=== PATIENT | female | born 1955 | race Caucasian/White ===

== ENCOUNTER 2020-02-02 09:07 | Observation (INO) | payer MEDICARE ==
[~2020-02-02] VITALS: Ht 157.5 cm; Wt 93.2 kg
[~2020-02-02 09:07] MED LIST: ACET325 PO; DOCU100 PO; ENOX40I SC; HYDACE5325; HYDMOR2 PO; OXYC10ER PO
[2020-02-02 09:27] LABS: BASOPHILS ABSOLUTE AUTO 0.09 K/mm3 (0.00-0.23); BASOPHILS PERCENT AUTO 1 % (0-2); EOSINOPHILS ABSOLUTE AUTO 0.58 K/mm3 (0.00-0.68); EOSINOPHILS PERCENT AUTO 5 % (0-6); Hematocrit 47.7 % (33.0-51.0); Hemoglobin 15.9 g/dL (11.5-16.0); IMMATURE GRAN ABSOLUTE AUTO 0.04 K/mm3 (0.00-0.10); IMMATURE GRAN PERCENT AUTO 0 % (0-1); LYMPHOCYTES ABSOLUTE AUTO 6.56 K/mm3 (0.84-5.20); LYMPHOCYTES PERCENT AUTO 52 % (21-46); MONOCYTES PERCENT AUTO 7 % (4-13); Mean Corpuscular HGB 33.4 pg (26.0-34.0); Mean Corpuscular HGB Conc 33.3 g/dL (31.5-36.5); Mean Corpuscular Volume 100 fL (80-100); Mean Platelet Volume 9.4 fL (9.1-12.4); NEUTROPHILS ABSOLUTE AUTO 4.36 K/mm3 (1.96-9.15); NEUTROPHILS PERCENT AUTO 35 % (41-73); Platelet Count 241 K/mm3 (150-400); RDW Coefficient Variation 13.2 % (11.7-14.2); RDW Standard Deviation 49.1 fL (35.1-46.3); Red Blood Cell Count 4.76 M/mm3 (3.80-5.20); White Blood Cell Count 12.53 K/mm3 (4.00-11.30)
[2020-02-02] MEDS ORDERED: ASPI325 PO (09:36)
[2020-02-02 09:48] LABS: Alanine Aminotransfer (ALT/SGP 17 U/L (12-78); Albumin, Blood 3.8 g/dL (3.4-5.0); Alk Phos 82 U/L (50-136); Anion Gap 9 mmol/L (6-16); Aspartate Aminotrans (AST/SGOT 15 U/L (12-37); Bilirubin, Total 0.5 mg/dL (0.1-1.0); Blood Urea Nitrogen 12 mg/dL (8-24); Bun/Creatinine Ratio 15.2 (12.0-20.0); CO2, Blood 19 mmol/L (21-32); Calcium, Blood 8.9 mg/dL (8.5-10.1); Chloride, Blood 113 mmol/L (98-108); Creatinine, Blood 0.79 mg/dL (0.40-1.00); Globulin, Blood 3.7 g/dL (2.2-4.0); Glomerular Filtration Rate >60 (60-); Glucose, Blood 119 mg/dL (70-99); Potassium, Blood 4.3 mmol/L (3.5-5.5); Sodium, Blood 141 mmol/L (136-145); Total Protein, Blood 7.5 g/dL (6.4-8.2)
--- NOTE | 2020-02-02 18:33 | NUR ---
1810 PT ADMITTED TO MEDICAL FLOOR VIA [facility]. PT SLIDE TRANSFERED TO BED WITH FOUR STAFF WITHOUT ISSUE. PT ASSISTED TO BSC WITH TWO ASSIST AND GB, PT REPORTS DIZZINESS WITH ANY CHANGE IN POSITION. PT BECAME NAUSEAUS WITH DRY HEAVES AFTER ASSISTED BACK TO BED, CHRIS CARE COMPLETED, GOWN CHANGED. PT DENIED THE NEED FOR NAUSEA MEDICATION ONCE LAYING ON SIDE. PT RESTING COMFORTABLY IN BED AT THIS TIME WITH EYES CLOSED.
[2020-02-02 22:34] LABS: Source, Urine Clean Catch
[2020-02-02 22:39] LABS: Bilirubin, Urine Neg (Neg); Blood, Urine 3+ (Neg); Glucose Qualitative, Urine Neg (Neg); Ketones, Urine Neg (Neg); Leukocyte Esterase, Urine Neg (Neg); Nitrite, Urine Neg (Neg); Protein, Urine Neg (Neg); Specific Gravity, Urine 1.015 (1.003-1.022); Urobilinogen, Urine NORM (Normal); pH, Urine 6.5 (5.0-8.0)
[2020-02-02 22:42] LABS: Appearance, Urine Clear (Clear); Color, Urine Yellow (P-Yellow)
[2020-02-02 22:50] LABS: Bacteria Rare /hpf; Red Blood Cells, Urine 0-2 /hpf (0-2); Squamous Epithelial Cells Few /hpf (Few); White Blood Cells, Urine Rare /hpf (0-5)
--- NOTE | 2020-02-02 23:33 | NUR ---
64 year old Female with vertigo, falls, N & V admitted OBS status & is on tel monitor. PT is sinus pola 53 but dips down to 43 temporarly. She had low TSH . Updated CLINICAL REVIEWER Sinpu & free t3 t4 ordered for AM. Continues with IV fluid 200 ml hr. Some verigo when up to BSC. Bed alalrm fall precautions. Tolerated snacl clear liquids after antiemetic given. On [facility] for superficial DVT & PT refused Saurabh fernandes.
[2020-02-03 04:31] LABS: BASOPHILS ABSOLUTE AUTO 0.07 K/mm3 (0.00-0.23); BASOPHILS PERCENT AUTO 1 % (0-2); EOSINOPHILS ABSOLUTE AUTO 0.25 K/mm3 (0.00-0.68); EOSINOPHILS PERCENT AUTO 4 % (0-6); Hematocrit 41.7 % (33.0-51.0); IMMATURE GRAN ABSOLUTE AUTO 0.01 K/mm3 (0.00-0.10); IMMATURE GRAN PERCENT AUTO 0 % (0-1); LYMPHOCYTES ABSOLUTE AUTO 2.46 K/mm3 (0.84-5.20); LYMPHOCYTES PERCENT AUTO 37 % (21-46); MONOCYTES ABSOLUTE AUTO 0.58 K/mm3 (0.16-1.47); MONOCYTES PERCENT AUTO 9 % (4-13); Mean Corpuscular HGB 32.3 pg (26.0-34.0); Mean Corpuscular HGB Conc 31.2 g/dL (31.5-36.5); Mean Corpuscular Volume 104 fL (80-100); Mean Platelet Volume 9.5 fL (9.1-12.4); NEUTROPHILS ABSOLUTE AUTO 3.31 K/mm3 (1.96-9.15); NEUTROPHILS PERCENT AUTO 50 % (41-73); Platelet Count 171 K/mm3 (150-400); RDW Coefficient Variation 13.4 % (11.7-14.2); RDW Standard Deviation 51.7 fL (35.1-46.3); Red Blood Cell Count 4.03 M/mm3 (3.80-5.20); White Blood Cell Count 6.68 K/mm3 (4.00-11.30)
[2020-02-03 04:53] LABS: Alanine Aminotransfer (ALT/SGP 15 U/L (12-78); Albumin, Blood 2.9 g/dL (3.4-5.0); Albumin/Globulin Ratio 1.1 (0.8-1.8); Alk Phos 63 U/L (50-136); Anion Gap 4 mmol/L (6-16); Aspartate Aminotrans (AST/SGOT 7 U/L (12-37); Bilirubin, Total 0.6 mg/dL (0.1-1.0); Blood Urea Nitrogen 7 mg/dL (8-24); Bun/Creatinine Ratio 8.7 (12.0-20.0); CO2, Blood 28 mmol/L (21-32); Calcium, Blood 7.7 mg/dL (8.5-10.1); Chloride, Blood 116 mmol/L (98-108); Creatinine, Blood 0.81 mg/dL (0.40-1.00); Globulin, Blood 2.7 g/dL (2.2-4.0); Glomerular Filtration Rate >60 (60-); Glucose, Blood 83 mg/dL (70-99); Potassium, Blood 4.1 mmol/L (3.5-5.5); Sodium, Blood 148 mmol/L (136-145); Total Protein, Blood 5.6 g/dL (6.4-8.2)
[2020-02-03 05:05] LABS: Free Thyroxine 0.95 ng/dL (0.70-1.60)
[2020-02-03 05:06] LABS: Triiodothyronine, Free 2.1 pg/mL (2.18-3.98)
--- NOTE | 2020-02-03 05:39 | NUR ---
PT HAS COMPLAINED OF ABDOMINAL CRAMPING. NURSE NOTIFIED.
--- NOTE | 2020-02-03 10:57 | NUR ---
THIS NURSE RECEIVED REPORT FROM ELIZABETH KNIGHT. THIS NURSE TO ASSUME CARE AT THIS TIME
--- NOTE | 2020-02-03 11:52 | NUR ---
SPOKE TO DR SANTY LORENZO TELE CALLED JUST DIPPED TO 39-40. ORDERS FOR COFFEE AND POSS MEDS TO FOLLOW. NOTIFIED DR ABOUT PT STATED CLOSED EYE AWAKE DREAMING. PT AWAKE, A/O X3, DENIES PAIN. TALKING ON PHONE WITH DAUGHTER. STATES COMFORTABLE, BUT VERTIGO REMAINS. NO N/V AT THIS TIME. H/R REG, BUT SLOW. PER TELE. S BJ AT 42. LUNGS CLEAR, RESP EASY, UNLABORED. ON R.A. BT HYPO, HOWEVER PT STATES 2 BM THIS AM. VOIDS 1 ASST TO BSC. CONTINUES WITH VERTIGO, BUT NO N/V AT THIS TIME. BED IN LOW POSITION, CALL LITE IN REACH, CALLS APROP
--- NOTE | 2020-02-03 17:54 | NUR ---
SHIFT SUMMARY PT AXO, PLEASANT AND COOPERATIVE WITH CARE. PT PULSE 39-42 THIS SHIFT PER WING COMMANDER. WHEN NURSE IN TO ASSESS, PT DENIED DIZZINESS, SOB, ETC. PT ABLE TO CONVERSE WITH NURSE, SMILING AND LAUGHING AT TIMES. DR MADERA NOTIFIED AT ROUNDING WHO ORDERED THAT PATIENT DRINK COFFEE. PT DRINKING COFFEE THROUGHOUT THE DAY WITH NO INCREASE IN HR. PT CONTINUED TO BE BRADYCARDIC, DR MADERA NOTIFED AT 1344, PT SUSTAINING 41-42. NO NEW ORDERS AT THIS TIME. DR MADERA STATED THAT ECHO COULD BE COMPLETED THE NEXT MORNING R/T MARKET RESEARCH COORDINATOR ALREADY LEFT FOR TODAY. PT AMBULATED TO SHOWER. REPORTED SOME DIZZINESS AT THAT TIME BUT MILD. AT 1646 NURSE IN TO INSERT NEW IV, PT STATED THAT AT HOME DURING THE NIGHT SHE HAS HAD CHEST PAIN, TAKES AND ASPIRIN THEN GOES BACK TO SLEEP. PT STATED THAT SHE HAD A SHORT EPISODE OF MINOR CHEST PAIN BUT DID NOT CALL NURSE AND DID NOT HAVE IT AT THAT TIME. PT EDUCATED TO CALL NURSE IF SHE HAS CHEST PAIN AGAIN. PT ALSO REPORTS THAT AT HOME SHE HAS FELT FATIGUED. IV PATENT AND INFUSING PER EMAR. BED IN LOW POSITION, CALL LIGHT WITHIN REACH.
--- NOTE | 2020-02-03 18:42 | NUR ---
PATIENT COMPLAINED OF NOT FEELING WELL. SHE REPORTS NAUSEA AND HEADACHE BUT IS NOT READY TO BE MEDICATED FOR THESE SYMPTOMS AT THIS TIME. THIS NURSE CALLED DR MADERA AND NOTIFIED HIM OF CONVERSATION WITH PATIENT ABOUT HER CHEST PAIN. NEW ORDERS INITIATED. PT EDUCATED AND UPDATED ON NEW LABS AND ORDERS. PT AGREES. DAUGHTER FACETIMING WITH PATIENT AND HER QUESTIONS ANSWERED WELL.
[2020-02-03 19:37] LABS: CPK Creatine Kinase 53 U/L (26-193); Troponin I <0.015 ng/mL (0.000-0.040)
[2020-02-03 19:39] LABS: Creatine Kinase MB <1.0 ng/mL (0.0-3.6); Creatine Kinase MB Index Unable to Calculate (0.0-4.0)
[2020-02-04 01:06] LABS: CPK Creatine Kinase 51 U/L (26-193); Troponin I <0.015 ng/mL (0.000-0.040)
[2020-02-04 01:08] LABS: Creatine Kinase MB <1.0 ng/mL (0.0-3.6); Creatine Kinase MB Index Unable to Calculate (0.0-4.0)
--- NOTE | 2020-02-04 01:56 | NUR ---
IVF OF NS CONTINUES AT 200 ML/HR, TOLERATING IVF WELL. CONTINUES ON MED TELE - SINUS BJ. PREVIOUS SHIFT VOICED HEART RATE IN THE 30'S BUT THIS SHIFT IN THE 40'S AFTER HALF ACUP OF COFFEE AT HS. ASYMPTOMATIC. VOICED NO PAIN. INSTRUCTED NO OUT OF BED WITHOUT ASSISTANCE. VOICED AGREEMENT. SCHEDULED FOR ECHO IN THE AM. CALL LIGHT IN REACH. WILL CONTINUE TO MONITOR
--- NOTE | 2020-02-04 06:17 | NUR ---
SHIFT SUMMARY HAS BEEN RESTING QUIETLY MOST OF SHIFT. HEART RATE BJ CARDIC ALL OF SHIFT, WAS IN THE 30'S BEFORE DRINKING A CUP OF COFFEE AT HS, THEN TRENDED INTO THE 40'S AND LAST VS TAKEN WAS 50. REMAINS ON MED TELE. ASYMPTOMATIC. IVF OF NS CONTINUES AT 200 ML/HR PER MD ORDERS. CALL LIGHT IN REACH
[2020-02-04 07:26] LABS: BASOPHILS ABSOLUTE AUTO 0.04 K/mm3 (0.00-0.23); BASOPHILS PERCENT AUTO 1 % (0-2); EOSINOPHILS ABSOLUTE AUTO 0.21 K/mm3 (0.00-0.68); EOSINOPHILS PERCENT AUTO 4 % (0-6); Hematocrit 39.3 % (33.0-51.0); Hemoglobin 12.6 g/dL (11.5-16.0); IMMATURE GRAN ABSOLUTE AUTO 0.01 K/mm3 (0.00-0.10); IMMATURE GRAN PERCENT AUTO 0 % (0-1); LYMPHOCYTES ABSOLUTE AUTO 2.02 K/mm3 (0.84-5.20); LYMPHOCYTES PERCENT AUTO 37 % (21-46); MONOCYTES ABSOLUTE AUTO 0.37 K/mm3 (0.16-1.47); MONOCYTES PERCENT AUTO 7 % (4-13); Mean Corpuscular HGB 33.1 pg (26.0-34.0); Mean Corpuscular HGB Conc 32.1 g/dL (31.5-36.5); Mean Corpuscular Volume 103 fL (80-100); Mean Platelet Volume 9.4 fL (9.1-12.4); NEUTROPHILS ABSOLUTE AUTO 2.78 K/mm3 (1.96-9.15); NEUTROPHILS PERCENT AUTO 51 % (41-73); Platelet Count 159 K/mm3 (150-400); RDW Coefficient Variation 13.3 % (11.7-14.2); RDW Standard Deviation 50.6 fL (35.1-46.3); Red Blood Cell Count 3.81 M/mm3 (3.80-5.20); White Blood Cell Count 5.43 K/mm3 (4.00-11.30)
[2020-02-04 07:45] LABS: Albumin, Blood 2.9 g/dL (3.4-5.0); Anion Gap 6 mmol/L (6-16); Blood Urea Nitrogen 5 mg/dL (8-24); Bun/Creatinine Ratio 6.8 (12.0-20.0); CO2, Blood 26 mmol/L (21-32); Calcium, Blood 7.5 mg/dL (8.5-10.1); Chloride, Blood 115 mmol/L (98-108); Creatinine, Blood 0.73 mg/dL (0.40-1.00); Glomerular Filtration Rate >60 (60-); Glucose, Blood 86 mg/dL (70-99); Phosphorus, Blood 2.5 mg/dL (2.5-4.9); Potassium, Blood 3.7 mmol/L (3.5-5.5); Sodium, Blood 147 mmol/L (136-145)
[2020-02-04 07:49] LABS: CPK Creatine Kinase 63 U/L (26-193)
[2020-02-04 07:50] LABS: Creatine Kinase MB <1.0 ng/mL (0.0-3.6); Creatine Kinase MB Index Unable to Calculate (0.0-4.0); Troponin I <0.015 ng/mL (0.000-0.040)
[2020-02-04] MEDS ORDERED: ACET325 PO (11:50)
[2020-02-04] MEDS ORDERED: Nicoderm Cq1 EACH TOP (11:51)
[2020-02-04] MEDS ORDERED: FAMO20 PO (11:51)
[2020-02-04] MEDS ORDERED: ONDA4ODT PO (11:52)
[2020-02-04] MEDS ORDERED: NITR.4SL SL (11:52)
[2020-02-04] MEDS ORDERED: Compro25 MG PR (11:53)
[2020-02-04] MEDS ORDERED: MECL25 PO (11:56)
--- NOTE | 2020-02-04 13:35 | NUR ---
DISCHARGE SUMMARY PT AXO, PLEASANT AND COOPERATIVE WITH CARE. PT DISCHARGED TO HOME. PT LEFT ROOM VIA WHEELCHAIR AND RN ESCORT JUST PRIOR TO THIS NOTE. IV DC'D AND BELONGINGS RETURNED. PT EDUCATED ON ALL DISCHARGE INSTRUCTIONS, ALL QUESTIONS ANSWERED.
== END 2020-02-04 13:22 | disposition home or self-care (01) ==
LOC: ER 09:07 → MEDS 09:08
PROVIDERS: Emergency Medicine; Nurse Practitioner Acute Care; ADMIT Family Medicine
DX: R42 Dizziness and giddiness (principal); R11.2 Nausea with vomiting, unspecified; R00.1 Bradycardia, unspecified; R03.0 Elevated blood-pressure reading, without diagnosis of hypertension; I82.811 Embolism and thrombosis of superficial veins of right lower extremity; F32.9 Major depressive disorder, single episode, unspecified; F41.9 Anxiety disorder, unspecified; K58.9 Irritable bowel syndrome, unspecified; F17.210 Nicotine dependence, cigarettes, uncomplicated; Z88.1 Allergy status to other antibiotic agents; Z79.82 Long term (current) use of aspirin
CPT/HCPCS: 36415; 70450; 70551; 80053; 80069; 81001; 82550; 82553; 82947; 83605; 83735; 84145; 84439; 84443; 84481; 84484; 85025; 86140; 93005; 93010; 93306; 96361; 96374; 96375; 96376; 99285-25; J1650; J2405; J2550; J2765; J3360; J7030; J7120

== ENCOUNTER 2021-01-16 19:31 | Observation (INO) | payer MEDICARE ==
[~2021-01-16] VITALS: Ht 154.9 cm; Wt 95.1 kg
[~2021-01-16 19:31] MED LIST changes: +ASPI325 PO; +Compro25 MG PR; +FAMO20 PO; +MECL25 PO; +NITR.4SL SL; +Nicoderm Cq1 EACH TOP; +ONDA4ODT PO
[2021-01-16 20:16] LABS: BASOPHILS ABSOLUTE AUTO 0.05 K/mm3 (0.00-0.23); BASOPHILS PERCENT AUTO 1 % (0-2); EOSINOPHILS ABSOLUTE AUTO 0.34 K/mm3 (0.00-0.68); EOSINOPHILS PERCENT AUTO 5 % (0-6); Hematocrit 43.1 % (33.0-51.0); Hemoglobin 14.3 g/dL (11.5-16.0); IMMATURE GRAN ABSOLUTE AUTO 0.03 K/mm3 (0.00-0.10); IMMATURE GRAN PERCENT AUTO 0 % (0-1); LYMPHOCYTES ABSOLUTE AUTO 3.07 K/mm3 (0.84-5.20); LYMPHOCYTES PERCENT AUTO 41 % (21-46); MONOCYTES PERCENT AUTO 7 % (4-13); Mean Corpuscular HGB 32.7 pg (26.0-34.0); Mean Corpuscular HGB Conc 33.2 g/dL (31.5-36.5); Mean Corpuscular Volume 99 fL (80-100); Mean Platelet Volume 9.1 fL (9.1-12.4); NEUTROPHILS ABSOLUTE AUTO 3.59 K/mm3 (1.96-9.15); NEUTROPHILS PERCENT AUTO 47 % (41-73); Platelet Count 195 K/mm3 (150-400); RDW Coefficient Variation 13.8 % (11.7-14.2); Red Blood Cell Count 4.37 M/mm3 (3.80-5.20); White Blood Cell Count 7.58 K/mm3 (4.00-11.30)
[2021-01-16 20:36] LABS: Alanine Aminotransfer (ALT/SGP 19 U/L (12-78); Albumin, Blood 3.6 g/dL (3.4-5.0); Albumin/Globulin Ratio 1.1 (0.8-1.8); Alk Phos 74 U/L (50-136); Anion Gap 5 mmol/L (6-16); Aspartate Aminotrans (AST/SGOT 15 U/L (12-37); Bilirubin, Total 0.4 mg/dL (0.1-1.0); Blood Urea Nitrogen 15 mg/dL (8-24); Bun/Creatinine Ratio 17.9 (12.0-20.0); CO2, Blood 24 mmol/L (21-32); Calcium, Blood 8.8 mg/dL (8.5-10.1); Chloride, Blood 112 mmol/L (98-108); Creatinine, Blood 0.84 mg/dL (0.40-1.00); Globulin, Blood 3.4 g/dL (2.2-4.0); Glomerular Filtration Rate >60 (60-); Glucose, Blood 83 mg/dL (70-99); Potassium, Blood 4.1 mmol/L (3.5-5.5); Sodium, Blood 141 mmol/L (136-145); Troponin I <0.015 ng/mL (0.000-0.040)
[2021-01-16 21:59] LABS: Source, Urine Clean Catch
[2021-01-16 22:02] LABS: Bilirubin, Urine Neg (Neg); Blood, Urine 3+ (Neg); Glucose Qualitative, Urine Neg (Neg); Ketones, Urine Neg (Neg); Leukocyte Esterase, Urine Neg (Neg); Nitrite, Urine Neg (Neg); Protein, Urine Neg (Neg); Specific Gravity, Urine 1.015 (1.003-1.022); Urobilinogen, Urine NORM (Normal)
[2021-01-16 22:18] LABS: Color, Urine Yellow (P-Yellow)
[2021-01-16 22:19] LABS: Appearance, Urine Clear (Clear); Bacteria Not Seen /hpf; Red Blood Cells, Urine 0-2 /hpf (0-2); Squamous Epithelial Cells Not Seen /hpf (Few); White Blood Cells, Urine Not Seen /hpf (0-5)
--- NOTE | 2021-01-17 00:38 | NUR ---
ADMISSION NOTE RECEIVED HAND OFF FROM Daiana RODRIGUEZ RN USING SBAR. TRANSPORTED TO ROOM 359 VIA STRETCHER. TRANSFERED SELF TO BED WITH STANDBY ASSISTANCE, TOLERATED WELL. AAO X4, GARCIA, FOLLOWS ALL COMMANDS. ORIENTED TO ROOM, CALL SYSTEM, AND POC, VOICES UNDERSTANDING. IS ON A CLEAR LIQUID DIET, GIVE WATER. RIIGHT HAND 22G PIV IS PATENT, FLUSHING WITH EASE WHILE INFUSING PROTONIX AT 10ML/HR VIA PUMP. SCD'S/TELE TO BE PLACED. EDEMA NOTED TO BLE, (+)2 TO LLE, AND (-)3 TO RLE. RESPIRATIONS EVEN AND UNLABORED ON ROOM AIR. LUNG SOUNDS CLEAR BILAERALLY. VSS AT THIS TIME. ABDOMEN SOFT WITH TENDERNESS NOTED IN LLQ. CONTINENT OF BOWEL AND BLADDER. AMBULATED TO BATHROOM TO VOID, WILL MEASURE OUTPUT. DENIES FURTHER NEEDS OR WANTS AT THIS TIME. ADMISSION ASSESSMENT IN PROGRESS. SAFETY MEASURES IN PLACE. WILL CONTINUE TO MONITOR FOR NEEDS OR CHANGES AND ADDRESS THEY OCCURE.
--- NOTE | 2021-01-17 06:12 | NUR ---
SHIFT SUMMARY LYING IN HER LEFT SIDE FACING WINDOW WITH EYES CLOSED, HAS RESTED WELL. NO SIGNIFICANT CHANGES SINCE ADMISSION. PIV PATENT, FLUSHING WITH EASE WHILE INFUSING PROTONIX GTT. DENIES PAIN, DISCOMFORT, OR FURTHER NEEDS AT THIS TIME. SAFETY MEASURES IN PLACE. WILL CONTINUE TO MONITOR AND ADDRESS NEEDS THEY ARISE. WILL GIVE HAND OFF TO ONCOMING SHIFT USING SBAR DURING BEDSIDE REPORT.
--- NOTE | 2021-01-17 14:03 | NUR ---
INTO SDS VIA GURNEY, ABLE TO AMBULATE IN ROOM TO [facility]. History, Chart, Medications and Allergies reviewed before start of procedure.Patient confirms NPO status and agrees with scheduled surgery. Lungs clear T/O to Auscultation.
--- NOTE | 2021-01-17 14:23 | NUR ---
01/17/21 1423 Sapphire Briceno History, Chart, Medications and Allergies reviewed before start of procedure.Patient confirms NPO status and agrees with scheduled surgery.3-LEAD EKG REVIEWED WITH PHYSICIAN PRIOR TO START OF PROCEDURE.MONITOR INTACT WITH CONTINUOUS PULSE OXIMETRY AND INTERMITTENT BP.O2 VIA N/C INTACT THROUGHOUT SEDATION/PROCEDURE. PATIENT DETERMINED TO BE ASA APPROPRIATE FOR PROPOFOL SEDATION PRIOR TO START OF PROCEDURE BY DR. BORREGO
--- NOTE | 2021-01-17 17:45 | NUR ---
DISCHARGE SUMMARY DESI COMPLAINED OF EPIGASTRIC PAIN BUT DECLINED ANY PAIN MEDICINE. DR CORBIN DID ENDOSCOPY, BIOPSIES TAKEN PER REPORT, BUT NOTHING HUGELY NOTABLE. DR CORBIN RECOMMENDS OUTPT COLONOSCOPY. PT ALSO COMPLAINED OF DIZZINESS/NAUSEA/FEELING 'OFF' EARLY AFTERNOON, VSS, DR COUGHLIN AT BEDSIDE. STAT EKG DONE, JUST SHOWED SINUS BJ. CARAFATE AND ZOFRAN GIVEN TO GOOD EFFECT. DISCHARGE PIV REMOVED, PAPERWORK REVIEWED, NO NEW MEDS. HER PCP'S OFFICE IS CLOSED, SHE STATES SHE WILL CALL TO MAKE A FOLLOW UP APPT. TROPONIN NEGATIVE. WHEELED OUT TO CAR WITH DAUGHTER VIA .
== END 2021-01-17 18:00 | disposition home or self-care (01) ==
LOC: ER 19:31 → MEDS 19:32
PROVIDERS: Physician Assistant; ADMIT Family Medicine
DX: R07.89 Other chest pain (principal); R10.13 Epigastric pain; E66.9 Obesity, unspecified; F17.210 Nicotine dependence, cigarettes, uncomplicated; R00.1 Bradycardia, unspecified; Z88.5 Allergy status to narcotic agent; Z88.6 Allergy status to analgesic agent; Z88.1 Allergy status to other antibiotic agents; Z96.653 Presence of artificial knee joint, bilateral; Z96.643 Presence of artificial hip joint, bilateral; Z98.84 Bariatric surgery status; Z86.718 Personal history of other venous thrombosis and embolism; Z68.37 Body mass index [BMI] 37.0-37.9, adult
CPT/HCPCS: 36415; 71045; 74176; 80053; 81001; 83690; 84484; 85025; 88305; 88342; 93005; 93010; 96374; 96375; 96376; 99285-25; A9270; C9113; G0378; J2405; J2704; J7120

== ENCOUNTER 2021-10-14 11:41 | Day surgery (SDC) | payer MEDICARE ==
[~2021-10-14] VITALS: Ht 157.5 cm; Wt 89.6 kg
--- NOTE | 2021-10-14 12:21 | NUR ---
10/14/21 1221 Kriss Duncan 1 TRY RIGHT HNAD BLEW 2 TRY RIGHT HAND NO FLASH
== END 2021-10-14 14:01 | disposition home or self-care (01) ==
LOC: ORSCSDS 11:41
PROVIDERS: Internal Medicine Gastroenterology
PROC: 0DBK8ZX Excision of Ascending Colon, Via Natural or Artificial Opening Endoscopic, Diagnostic (ICD-10-PCS; principal; 2021-10-14 13:15)
DX: K63.3 Ulcer of intestine (principal); R10.9 Unspecified abdominal pain; Z98.84 Bariatric surgery status; F41.9 Anxiety disorder, unspecified; F17.210 Nicotine dependence, cigarettes, uncomplicated; Z79.899 Other long term (current) drug therapy
CPT/HCPCS: 88305; J0461; J2405; J2704; J7120

== ENCOUNTER → 2022-10-29 | Outpatient (CLI) | payer MEDICARE | END | disposition home or self-care (01) | LOC: LAB SHORT 07:51 → PLD 07:51 | DX: D23.5 Other benign neoplasm of skin of trunk (principal) | CPT/HCPCS: 88305 ==